=== PATIENT | female | born 1965 | race Caucasian/White ===

== ENCOUNTER 2018-08-06 16:50 | Emergency (ER) | payer OTHER ==
[~2018-08-06] VITALS: Ht 167.6 cm; Wt 106.6 kg
[~2018-08-06 16:50] MED LIST: OMEP10CA2 PO
[2018-08-06 17:00] VITALS: BP_SYST 144
== END 2018-08-06 18:55 | disposition home or self-care (01) ==
LOC: SED 16:50
DX: K08.89 Other specified disorders of teeth and supporting structures (principal); R03.0 Elevated blood-pressure reading, without diagnosis of hypertension; Z88.0 Allergy status to penicillin; Z88.8 Allergy status to other drugs, medicaments and biological substances
CPT/HCPCS: 99283

== ENCOUNTER 2018-09-07 12:53 | Emergency (ER) | payer OTHER, MEDICAID ==
[~2018-09-07] VITALS: Ht 167.6 cm; Wt 104.3 kg
[2018-09-07 13:11] VITALS: BP_SYST 120
[2018-09-07 13:30] VITALS: BP_SYST 120
== END 2018-09-07 13:30 | disposition home or self-care (01) ==
LOC: SED 12:53
DX: K02.9 Dental caries, unspecified (principal); K08.89 Other specified disorders of teeth and supporting structures; I10 Essential (primary) hypertension; Z88.0 Allergy status to penicillin; Z88.8 Allergy status to other drugs, medicaments and biological substances
CPT/HCPCS: 99283